=== PATIENT | female | born 1955 | race African-American/Black ===

== ENCOUNTER 2018-07-17 04:25 | Emergency (ER) | payer OTHER ==
[~2018-07-17] VITALS: Ht 165.1 cm; Wt 127.0 kg
[2018-07-17] MEDS ORDERED: CLINDAMYCIN HC300 MG PO (05:17)
[2018-07-17 05:46] VITALS: BP 245/113
== END 2018-07-17 05:45 | disposition home or self-care (01) ==
LOC: ER 04:25
DX: L03.211 Cellulitis of face (principal); K02.9 Dental caries, unspecified; I10 Essential (primary) hypertension